=== PATIENT | female | born 1945 | race Caucasian/White ===

== ENCOUNTER 2016-12-11 12:43 | Outpatient (CLI) | payer OTHER, MEDICARE ==
[~2016-12-11 12:43] MED LIST: ADVAIR DISKU INH; ADVAIR DISKUS INH; CALCIUM600 MG PO; FOSAMAX70 MG PO; LEVOTHYROXINE125 MCG PO; MAG-OX 400400 MG PO; MULTIPLE VITAMIN PO; NEXIUM40 M1 PO; NORCO1 TA1 PO; SINGULAIR10 MG PO; TRAZODONE HCL50 MG PO; ULTRAM EQIVALEN50 MG PO; VITAMIN C500 M1 PO; VIVLODEX5 MG PO
== END 2016-12-11 23:00 ==
LOC: LAB SRH 12:43
DX: Z01.812 Encounter for preprocedural laboratory examination (principal); S49.91XS Unspecified injury of right shoulder and upper arm, sequela
CPT/HCPCS: 90074; 91631; 92560

== ENCOUNTER 2016-12-17 12:28 | Outpatient (CLI) | payer OTHER, MEDICARE ==
--- NOTE | 2016-12-17 16:14 | DIAGNOSTIC IMAGING REPORT ---
PROCEDURE: XR SHOULDER INJECTION (PRE MR) INDICATION: AC JOINT INJURY SHOULDER RT TECHNIQUE: The patient was advised of the usual risks and complications including infection, bleeding, and allergy. Supine position. Following sterile preparation and 1% lidocaine anesthetic, fluoroscopic guidance (0.5 minutes, 85.37 mg) was utilized to place a 22-gauge spinal needle into the anterolateral aspect of the right shoulder joint. Intraarticular position was confirmed with 2 mL of Isovue 200 contrast material. Subsequently, a 12.5 mL solution ( 2.5 mL 1% lidocaine, 2.5 mL 0.5% Marcaine, 2.5 ml of Isovue 200, 5 ml of normal saline, 2 drops of ProHance) was infused and the needle was withdrawn. COMPARISON: None. FINDINGS: Three views. Confirmation of intraarticular injection. The patient tolerated the procedure reasonably well and was discharged to the MRI unit in satisfactory condition with instructions to resume routine activity the following day, and to call for any untoward symptoms (increasing pain/swelling). IMPRESSION: 1. Successful fluoroscopically guided therapeutic injection of the right shoulder joint.
--- NOTE | 2016-12-17 17:02 | DIAGNOSTIC IMAGING REPORT ---
PROCEDURE: MR UPPER EXT JOINT W/CONT-RT INDICATION: AC JOINT INJURY SHOULDER RT TECHNIQUE: Intraarticular contrast/gadolinium injected earlier in the day. PD, FAT-SAT PD, and FAT-SAT T1 sagittal oblique images. PD, FAT-SAT PD, and FAT-SAT T1 coronal oblique images. T1, FAT-SAT T1, and gradient axial images. COMPARISON: Right shoulder x-ray 12/17/2016 FINDINGS: Prior resection of the distal clavicle with inferior spurring and acromioplasty. However, there is a caudal angulation of the acromion resulting in mild impingement. Partial thickness tear of the undersurface of the supraspinatus tendon. There is no bursal effusion. There is a superior labral tear. Normal glenohumeral ligaments. There is some atrophy of the subscapularis muscle. There is tendinosis of the long head of the bicipital tendon. There is debris in the subcoracoid bursa. IMPRESSION: 1. Distal resection of the right clavicle with inferior spurring and acromioplasty 2. Caudal angulation of the acromion resulting in mild impingement. 3. Partial thickness tear of the undersurface of supraspinatus tendon 4. Superior labral tear 5. Tendinosis of the long head of the bicipital tendon 6. Debris in the subcoracoid bursa.
== END 2016-12-17 23:00 ==
LOC: XR SRH 12:28
PROC: BW1J1ZZ Fluoroscopy of Upper Extremity using Low Osmolar Contrast (ICD-10-PCS; principal; 2016-12-17)
DX: S43.431A Superior glenoid labrum lesion of right shoulder, initial encounter (principal); M75.41 Impingement syndrome of right shoulder; M75.21 Bicipital tendinitis, right shoulder; M75.51 Bursitis of right shoulder